=== PATIENT | male | born 1955 | race Caucasian/White ===

== ENCOUNTER 2017-03-26 08:54 | Emergency (ER) | payer MEDICARE ==
[~2017-03-26] VITALS: Ht 172.7 cm; Wt 113.4 kg
[~2017-03-26 08:54] MED LIST: ADVAIR 250-501 EACH INH; ASPIRIN325 MG PO; CENTRUM SILVER1 EAC3 PO; COMBIVENT RESPIM4 GM IH; GABAPENTIN100 MG PO; METAXALONE800 MG PO; METOPROLOL SUCC50 MG PO; OMEPRAZOLE40 MG PO; SIMVASTATIN40 MG PO; TAMSULOSIN HCL0.4 MG PO; TRAMADOL HCL100 MG PO; ZANTAC150 MG PO; ZOLOFT25 MG PO; ZOLPIDEM TARTRA10 MG PO
[2017-03-26] MEDS ORDERED: ALBUTEROL/IPRATROPIUM 3 ML NEB NEB ONE (09:30)
[2017-03-26] MEDS ORDERED: SODIUM CHLORIDE 0.9% 1000ML 1,000 ML IV SCH (09:45)
[2017-03-26] MEDS ORDERED: DILTIAZEM HCL 5 MG/ML 5 ML VIAL IV STA ×2 (09:45→10:48)
[2017-03-26 10:02] LABS: BASOPHILS % 0.3 % (0.0-1.0); EOSINOPHILS % 0.1 % (0.0-6.0); HEMATOCRIT 45.7 % (38.2-49.6); HEMOGLOBIN 15.2 g/dL (14.0-18.0); LYMPHOCYTES # (AUTO) 0.7 (1.0-3.2); LYMPHOCYTES % 9.6 % (18.0-39.1); MEAN CORPUSCULAR HGB CONC 33.3 g/dL (31-35); MONOCYTES # (AUTO) 0.6 (0.2-0.8); MONOCYTES % 8.8 % (4.4-11.3); NEUTROPHILS # (AUTO) 5.5 (2.1-6.9); NEUTROPHILS % 80.9 % (38.7-80.0); PLATELET COUNT 160 x10e3/uL (140-360); RED BLOOD COUNT 5.25 x10e6/uL (4.3-5.7); RED CELL DISTRIBUTION WIDTH 12.5 % (11.7-14.4)
--- NOTE | 2017-03-26 10:29 | Diagnostic Imaging Report ---
PROCEDURE: X-RAY CHEST, TWO VIEWS COMPARISON: NONE INDICATIONS: COUGH, FLU SYMPTOMS FINDINGS: LUNGS: No consolidations or edema. PLEURA: No effusions or pneumothorax. HEART \T\ MEDIASTINUM: The heart is within normal size-limits. BONES \T\ SOFT TISSUES: No acute findings. Wedge shaped mid thoracic spine vertebral body telephone claims representative of lytic chronic appearing compression abnormality. CONCLUSION: No acute thoracic abnormality. Osmel Munoz D.O. Dictated by: Osmel Munoz D.O. on 03/26/2017 at 10:37 Electronically approved by: Osmel Munoz D.O. on 03/26/2017 at 10:37
[2017-03-26 10:38] LABS: ANION GAP 15.5 mmol/L (8-16); BLOOD UREA NITROGEN 18 mg/dL (7-26); BUN/CREATININE RATIO 17 (6-25); CALCIUM 9.5 mg/dL (8.4-10.2); CARBON DIOXIDE 23 mmol/L (22-29); CHLORIDE 100 mmol/L (98-107); CREATININE, SERUM 1.09 mg/dL (0.72-1.25); EST GLOMERULAR FILTRATION RATE > 60 ML/MIN (60-); GLUCOSE 120 mg/dL (74-118); POTASSIUM 3.5 mmol/L (3.5-5.1); SODIUM 135 mmol/L (136-145)
[2017-03-26] MEDS ORDERED: OSELTAMIVIR PHOSPHATE 75 MG CAP PO ONE (11:00)
[2017-03-26] MEDS ORDERED: PANTOPRAZOLE SO40 MG PO (11:57)
[2017-03-26] MEDS ORDERED: FINASTERIDE5 MG PO (11:57)
[2017-03-26] MEDS ORDERED: SERTRALINE HCL50 MG PO (11:57)
[2017-03-26] MEDS ORDERED: DIAZEPAM5 MG PO (11:57)
[2017-03-26] MEDS ORDERED: OXYBUTYNIN CHLOR5 MG PO (11:57)
[2017-03-26] MEDS ORDERED: GABAPENTIN300 MG PO (11:57)
[2017-03-26] MEDS ORDERED: IBUPROFEN400 MG PO (11:57)
[2017-03-26] MEDS ORDERED: VITAMIN B-121000 MCG PO (11:57)
[2017-03-26 13:26] VITALS: BP 120/91
--- NOTE | 2017-03-26 14:14 | History and Physical ---
SHORTSTAY SUMMARY DATE OF DISCHARGE: 03/26/2017 Mr. Fredy Nogueira is a 61-year-old white man who presented to [facility] Emergency Room with a 3-to-4-day history of worsening, nonproductive cough, diffuse myalgias and shaking chills. Patient states that just 3 days ago his nephew was diagnosed with influenza. In the emergency room, the patient's nasal swab was positive for influenza A antigen. The patient's blood chemistries as well as his complete blood count were unremarkable. Chest x-ray done in the emergency room did not reveal any acute thoracic abnormality. The patient, however, was found to be in atrial fibrillation with heart rate of 125. The patient does have a history of chronic atrial fibrillation. The patient denies any chest pain at this time. He also denies any palpitations or lightheadedness. The patient is in no respiratory distress. REVIEW OF SYSTEMS GENERAL: Weight has been stable. He had shaking chills and fever. HEENT: No headache. No vision changes. CARDIOVASCULAR: He complains of dry cough for the last 3 to 4 days. Denies history of shortness of breath or chest pain. Also denies any palpitations or lightheadedness. GI: Benign. No diarrhea or constipation. : He does have BPH, and he has a history of left-sided kidney stones; but at this time, he denies any flank pain or hematuria. NEUROMUSCULAR: Has chronic back pain, but it is not worse than usual. PAST MEDICAL HISTORY 1. Chronic atrial fibrillation. 2. Obstructive sleep apnea. 3. Hyperlipidemia. 4. Hypertriglycerdemia. 5. Benign prostatic hypertrophy. 6. Left-sided kidney stones. 7. Obesity. 8. Tobacco abuse. 9. Chronic back pain secondary to lumbar spinal stenosis. 10. Bilateral knee degenerative joint disease. 11. Bilateral hip degenerative joint disease. 12. Erectile dysfunction. 13. Major depressive disorder. 14. Peripheral neuropathy. 15. Prediabetes. 16. GERD. SURGICAL HISTORY 1. Lumbar spine surgery in 1998. 2. Lumbar spine surgery a 2nd time in 2003. 3. History of multiple lumbar epidural steroid injections. FAMILY HISTORY: Father of cancer secondary to asbestosis. Patient states he has numerous family members with type-2 diabetes mellitus. Patient also has an aunt and uncle who of myocardial infarction. ALLERGIES: NO KNOWN DRUG ALLERGIES. SOCIAL HISTORY: This man is . He lives with his . He does smoke tobacco. Denies any alcohol use. 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 HOME MEDICATIONS 1. Aspirin 325 mg daily. 2. Xyzal 5 mg daily. 3. Diazepam 10 mg daily. 4. Finasteride 5 mg daily. 5. Advair 250 per 50 one puff b.i.d. 6. Gabapentin 300 mg t.i.d. 7. Ibuprofen 800 mg t.i.d. 8. Metaxalone 800 mg once daily. 9. Metoprolol succinate 50 mg daily. 10. Centrum Silver multivitamin once daily. 11. Oxybutynin 5 mg daily. 12. Pantoprazole 40 mg daily. 13. Sertraline 50 mg daily. 14. Simvastatin 40 mg nightly. 15. Tramadol Extended Release 100 mg once daily. PHYSICAL EXAMINATION GENERAL: He is awake, alert and fully oriented, in no acute distress, very pleasant. He is in no respiratory distress. VITAL SIGNS: Height is 5 feet 8 inches, weight 250 pounds. Calculated body mass index is 38. Blood pressure 111/65. Heart rate is currently 104 (patient was given Cardizem 10 mg intravenously 2 doses in the emergency room). Temperature is 99.5. Respiratory rate is 18. Oxygen saturation is 98% on room air. INTEGUMENT: Skin is warm and dry. No pallor, jaundice or diaphoresis. HEENT: Anicteric sclerae with moist mucous membranes. NECK: Supple. No evidence of jugular venous distention. CARDIOVASCULAR: Distant heart sounds. Tachycardic heart rate. Regular rhythm. LUNGS: The patient has coarse breath sounds bilaterally. ABDOMEN: Obese. Benign. EXTREMITIES: No edema or deformity. ADMISSION DIAGNOSES 1. Influenza A with respiratory manifestation (confirmed). 2. Chronic atrial fibrillation. 3. Obesity. Calculated body mass index 38. 4. Obstructive sleep apnea. 5. Tobacco use. 6. Chronic bronchitis. DISCHARGE DIAGNOSES 1. Chronic atrial fibrillation. 2. Influenza A with respiratory manifestation (confirmed). 3. Obstructive sleep apnea. 4. Obesity (calculated body mass index 38). 5. Tobacco abuse. 6. Chronic bronchitis. PLAN 1. The patient will continue his home medications. 2. Will ask the patient to stop aspirin therapy since he will be sent home on Eliquis. 3. Will ask the patient to stop NSAIDs and ibuprofen since he will be starting anticoagulation, namely Eliquis. 4. Will increase metoprolol succinate from 50 mg daily to twice a day for better heart rate control. 5. Will prescribe Tamiflu 75 mg p.o. b.i.d. for 5 days for the patient's influenza. 6. Will start Eliquis 5 mg twice a day for anticoagulation in regards to the patient's nonvalvular atrial fibrillation. 7. Highly recommend tobacco cessation. 8. Patient will follow up with his primary care physician, namely myself Dr. Chris Medina, within the next week. 9. Patient was instructed to follow up with the nearest emergency room if he experiences any further worsening shortness of breath or palpitations. 10. I spent 1 hour in the care of this patient. CHRIS MEDINA MD Job#: [id number] TRU CURTIS
== END 2017-03-26 14:00 | disposition home or self-care (01) ==
LOC: ER 08:54
DX: R06.00 Dyspnea, unspecified (principal); J11.1 Influenza due to unidentified influenza virus with other respiratory manifestations; I48.1 Persistent atrial fibrillation
CPT/HCPCS: 36415; 71020; 80048; 83880; 84484; 85025; 87400; 93005; 94640; 99284; J7030

== ENCOUNTER 2017-05-30 06:53 | Inpatient (IN) | payer MEDICARE ==
[~2017-05-30] VITALS: Ht 172.7 cm; Wt 108.0 kg
[~2017-05-30 06:53] MED LIST changes: +DIAZEPAM5 MG PO; +FINASTERIDE5 MG PO; +GABAPENTIN300 MG PO; +IBUPROFEN400 MG PO; +OXYBUTYNIN CHLOR5 MG PO; +PANTOPRAZOLE SO40 MG PO; +SERTRALINE HCL50 MG PO; +VITAMIN B-121000 MCG PO
--- OUTSIDE RECORDS SUMMARY | 2017-05-30 06:55 | XMS REPORT ---
Author Author [facility] Address Unknown Phone Unavailable Care Team Providers [employer] Name Role Phone MARÍA ELENA CHAPIN Unavailable Unavailable Problems This patient has no known problems. Allergies, Adverse Reactions, Alerts This patient has no known allergies or adverse reactions. Medications This patient has no known medications. Results Test Description Test Time Test Comments Text Results Atomic Results Result Comments CHEST 2 VIEWS [place] [address] Patient Name: ARIELLE HEARD JR MR #: [id number] : 1955 Age/Sex: 61/M Req #: [id number] Adm Physician: Ordered by: MARÍA ELENA CHAPIN MD Report #: [id number] Location: ER Room/Bed: Procedure: [id number] DX/CHEST 2 VIEWS Exam Date: 03/26/17 Exam Time : 0950 REPORT STATUS: Signed PROCEDURE: X-RAY CHEST, TWO VIEWS COMPARISON: NONE INDICATIONS: COUGH, FLU SYMPTOMS FINDINGS: LUNGS: No consolidations or edema. PLEURA: No effusions or pneumothorax. HEART T MEDIASTINUM: The heart is within normal size- limits. BONES T SOFT TISSUES: No acute findings. Wedge shaped mid thoracic spine vertebral body business process representative of lytic chronic appearing compression abnormality. CONCLUSION: No acute thoracic abnormality. Isaias Vu D.O. Dictated by: Isaias Vu D.O. on 03/26/2017 at 10:37 Electronically approved by: Isaias Vu D.O. on 03/26/2017 at 10:37 Dictated By: ISAIAS VU DO [id number] Transcribed By: ADRI on 03/26/17 1037 COPY TO: MARÍA ELENA CHAPIN MD
[2017-05-30] MEDS ORDERED: SODIUM CHLORIDE 0.9% 1000ML 1,000 ML IV STA (07:09)
[2017-05-30] MEDS ORDERED: ONDANSETRON HCL INJ 2 MG/ML VIAL IV PRN (07:15)
[2017-05-30] MEDS ORDERED: CEFTRIAXONE SOD 1 GM VIAL IM ONE (07:15)
[2017-05-30 07:53] LABS: BASOPHILS % 0.3 % (0.0-1.0); EOSINOPHILS # (AUTO) 0.1 (0.0-0.4); EOSINOPHILS % 1.4 % (0.0-6.0); HEMATOCRIT 46.9 % (38.2-49.6); LYMPHOCYTES # (AUTO) 2.7 (1.0-3.2); LYMPHOCYTES % 28.9 % (18.0-39.1); MEAN CORPUSCULAR HEMOGLOBIN 28.6 pg (28-32); MEAN CORPUSCULAR VOLUME 89.3 fL (81-99); MONOCYTES # (AUTO) 0.7 (0.2-0.8); MONOCYTES % 7.3 % (4.4-11.3); NEUTROPHILS # (AUTO) 5.7 (2.1-6.9); NEUTROPHILS % 61.8 % (38.7-80.0); PLATELET COUNT 203 x10e3/uL (140-360); RED BLOOD COUNT 5.25 x10e6/uL (4.3-5.7); RED CELL DISTRIBUTION WIDTH 13.6 % (11.7-14.4)
[2017-05-30 07:58] LABS: INR 0.95; PROTHROMBIN TIME 11.9 seconds (11.9-14.5)
[2017-05-30 07:59] LABS: PARTIAL THROMBOPLASTIN TIME 28.7 seconds (23.8-35.5)
[2017-05-30] MEDS ORDERED: MORPHINE SULFATE 2 MG/ML SYR IV PRN (08:00)
[2017-05-30 08:05] LABS: ALANINE AMINOTRANSFERASE 24 IU/L (0-55); ALBUMIN 3.6 g/dL (3.5-5.0); ALBUMIN/GLOBULIN RATIO 0.9 (0.8-2.0); ALKALINE PHOSPHATASE 67 IU/L (40-150); ANION GAP 13.6 mmol/L (8-16); BLOOD UREA NITROGEN 20 mg/dL (7-26); BUN/CREATININE RATIO 24 (6-25); CALCIUM 9.4 mg/dL (8.4-10.2); CARBON DIOXIDE 27 mmol/L (22-29); CHLORIDE 104 mmol/L (98-107); CREATININE, SERUM 0.83 mg/dL (0.72-1.25); EST GLOMERULAR FILTRATION RATE > 60 ML/MIN (60-); GLUCOSE 94 mg/dL (74-118); POTASSIUM 3.6 mmol/L (3.5-5.1); SODIUM 141 mmol/L (136-145)
[2017-05-30] MEDS: SODIUM CHLORIDE 0.9% 1000ML 1,000 ML IV SCH ×3 (08:23→21:12)
[2017-05-30] MEDS: CEFTRIAXONE SOD 1 GM VIAL IV SCH (08:23)
[2017-05-30] MEDS ORDERED: MELATONIN3 MG PO (08:29)
[2017-05-30] MEDS ORDERED: SIMVASTATIN40 MG PO (08:29)
[2017-05-30] MEDS ORDERED: CEFUROXIME250 MG PO (08:29)
[2017-05-30] MEDS ORDERED: TAMSULOSIN HCL0.4 MG PO (08:29)
[2017-05-30] MEDS ORDERED: ELIQUIS PO (08:29)
--- NOTE | 2017-05-30 09:05 | History and Physical ---
CHIEF COMPLAINT: "I am urinating blood." HISTORY OF PRESENT ILLNESS: This is a 62-year-old white male who presents to [facility] emergency room with a 3-week history of gross hematuria. The patient is on apixaban because of chronic atrial fibrillation. Moreover, the patient has a history of left-sided kidney stones. The patient denies any flank pain. He denies any recent trauma or injury to his abdominal or posterior torso area. The patient also denies any urinary tract infection symptoms. In the emergency room, the patient was found to have a hemoglobin of 15 g/dL. The patient's white blood cell count was 9100 with 62% segmented neutrophils. The patient's BUN and creatinine is 20 and 0.83 respectively. The patient was admitted for further evaluation and treatment. REVIEW OF SYSTEMS GENERAL: Weight has been stable. No fever or chills. No fatigue. HEENT: No headaches. No visual changes. CARDIOVASCULAR/RESPIRATORY: No chest pain or shortness of breath. He has a chronic cough. The patient states he does smoke tobacco heavily. The patient does have atrial fibrillation and is on apixaban as previously stated. GI: No nausea, vomiting, diarrhea, or constipation. The patient denies any melena or hematochezia. : The patient complains of gross hematuria for the last 3 weeks. The patient also has a history of left-sided kidney stones. NEUROMUSCULAR: Denies any limb weakness or numbness. The patient does complains of chronic back pain, as well as chronic pain in his bilateral knees and hips. ALLERGIES: NO KNOWN DRUG ALLERGIES. MEDICATIONS 1. Eliquis 5 mg b.i.d. 2. Xyzal 5 mg daily. 3. Diazepam 10 mg a day. 4. Finasteride 5 mg daily. 5. Advair 250 per 50 mg 1 puff b.i.d. 6. Gabapentin 300 mg t.i.d. 7. Metaxalone 100 mg once a day. 8. Metoprolol succinate 50 mg b.i.d. 9. Centrum Silver multivitamins one daily. 10. Oxybutynin 5 mg daily. 11. Pantoprazole 40 mg daily. 12. Sertraline 50 mg a day. 13. Simvastatin 40 mg at bedtime. 14. Tramadol extended release 100 mg once daily. PAST MEDICAL HISTORY 1. Chronic atrial fibrillation. 2. Obstructive sleep apnea. 3. Hyperlipidemia. 4. Hypertension. 5. Benign prostatic hypertrophy. 6. Left-sided kidney stones. 7. Obesity. 8. Tobacco abuse. 9. Chronic back pain secondary to lumbar spinal stenosis. 10. Bilateral knee degenerative joint disease. 11. Bilateral hip degenerative joint disease. 12. Erectile dysfunction. 13. Major depressive disorder. 14. Peripheral neuropathy. 15. Prediabetes. 16. GERD. SURGICAL HISTORY 1. Lumbar spine surgery in 1998. 2. Lumbar spine surgery in 2003. 3. History of multiple lumbar epidural steroid injections. FAMILY HISTORY: Father of cancer secondary to asbestosis. The patient states he has family members with type 2 diabetes mellitus. The patient also states he has an aunt and an uncle who of myocardial infarctions. SOCIAL HISTORY: This man is and lives with his . He is a heavy tobacco smoker. Denies any alcohol use. 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 PHYSICAL EXAMINATION GENERAL: He is awake, alert and oriented in no distress. Very pleasant and cooperative with exam. His sister and [id number] are at the bedside. VITALS: Height is 5 feet 8 inches, weight 230 pounds, calculated body mass index is 35. Blood pressure is 108/80, pulse 88, respiratory rate 16, temperature 98.6, oxygen saturation 96% on room air. INTEGUMENT: Skin is warm and dry. No pallor of conjunctivae appreciated. HEENT: Anicteric sclerae with moist mucous membranes. NECK: Supple. CARDIOVASCULAR: Distant heart sounds. Regular rate and rhythm. LUNGS: No rales. No rhonchi or wheezing. ABDOMEN: Obese and benign. SPINE/TORSO: No costovertebral angle tenderness appreciated. EXTREMITIES: No edema or deformity. NEUROLOGIC: Intact. IMPRESSION 1. Gross hematuria. 2. Chronic atrial fibrillation. 3. Tobacco abuse. 4. History of left-sided kidney stones. PLAN 1. Will hold apixaban. 2. Consult urology. 3. Make the patient n.p.o. since he may undergo cystoscopy today. 4. Will continue beta samantha, namely metoprolol succinate for heart rate control. 5. Highly recommend tobacco cessation since this puts him at risk for bladder carcinoma. I spent 45 minutes in the care of this patient. Job#: [id number] VANITA CURTIS
[2017-05-30 10:58] VITALS: BP 111/70
[2017-05-30 10:59] VITALS: BP 111/70
[2017-05-30 11:58] VITALS: BP 110/79
[2017-05-30] MEDS ORDERED: BELLADONNA/OPIUM 60 MG SUPP PR ONE (13:37)
[2017-05-30] MEDS ORDERED: IOPAMIDOL 610MG/1ML 300 MG/ML VIAL IV ONE (13:37)
[2017-05-30] MEDS ORDERED: BELLADONNA/OPIUM 60 MG SUPP PR PRN (15:00)
[2017-05-30 17:06] VITALS: BP 104/55
[2017-05-30] MEDS ORDERED: LIDOCAINE HCL 2% LOCAL INJ 5 ML SDV VIAL INJ ONE (18:05)
[2017-05-30] MEDS ORDERED: SEVOFLURANE INHAL SOLN 250 ML PEN BTL ONE (18:05)
[2017-05-30] MEDS ORDERED: PROPOFOL IV EMULSION 10 MG/ML 20 ML VIAL ONE (18:05)
[2017-05-30] MEDS ORDERED: DEXAMETHASONE SOD PHOS INJ 4 MG/ML VIAL ONE (18:05)
[2017-05-30] MEDS ORDERED: ONDANSETRON HCL INJ 2 MG/ML VIAL ONE (18:05)
[2017-05-30] MEDS ORDERED: OXYBUTYNIN CHLORIDE 5 MG TAB PO PRN (18:15)
[2017-05-30] MEDS ORDERED: TRAMADOL HCL 50 MG TAB PO PRN (18:15)
[2017-05-30] MEDS ORDERED: SALMETEROL/FLUTICASONE 250/50 INH PRN (18:15)
[2017-05-30] MEDS ORDERED: FENTANYL CITRATE/PF 100MCG/2 ML INJ ONE (18:32)
[2017-05-30] MEDS ORDERED: MIDAZOLAM HCL 2 MG/2 ML VIAL ONE (18:32)
[2017-05-30 20:00] VITALS: BP 133/69
[2017-05-30] MEDS ORDERED: MELATONIN 3 MG TAB PO SCH (21:00)
[2017-05-30] MEDS: GABAPENTIN 300 MG CAP PO SCH (21:33)
[2017-05-30] MEDS: MELATONIN 5 MG TABLET PO SCH (21:33)
[2017-05-30] MEDS: SIMVASTATIN 40 MG TAB PO SCH (21:33)
[2017-05-30] MEDS: METAXALONE 800 MG TAB PO SCH (21:33)
[2017-05-30 21:42] VITALS: BP 133/69
[2017-05-31] VITALS (8 sets, daily range): BP systolic 111–143; BP diastolic 66–73
[2017-05-31] MEDS: SODIUM CHLORIDE 0.9% 1000ML 1,000 ML IV SCH ×3 (04:46→22:57)
[2017-05-31 06:26] LABS: BASOPHILS % 0.1 % (0.0-1.0); EOSINOPHILS % 0.3 % (0.0-6.0); HEMATOCRIT 41.3 % (38.2-49.6); HEMOGLOBIN 13.3 g/dL (14.0-18.0); LYMPHOCYTES # (AUTO) 1.7 (1.0-3.2); LYMPHOCYTES % 15.9 % (18.0-39.1); MEAN CORPUSCULAR HEMOGLOBIN 28.6 pg (28-32); MEAN CORPUSCULAR HGB CONC 32.2 g/dL (31-35); MEAN CORPUSCULAR VOLUME 88.8 fL (81-99); MONOCYTES # (AUTO) 0.8 (0.2-0.8); MONOCYTES % 7.3 % (4.4-11.3); NEUTROPHILS # (AUTO) 7.9 (2.1-6.9); NEUTROPHILS % 75.9 % (38.7-80.0); PLATELET COUNT 175 x10e3/uL (140-360); RED BLOOD COUNT 4.65 x10e6/uL (4.3-5.7); RED CELL DISTRIBUTION WIDTH 13.7 % (11.7-14.4)
[2017-05-31 06:51] LABS: ANION GAP 11.8 mmol/L (8-16); BLOOD UREA NITROGEN 10 mg/dL (7-26); BUN/CREATININE RATIO 15 (6-25); CALCIUM 8.3 mg/dL (8.4-10.2); CARBON DIOXIDE 26 mmol/L (22-29); CHLORIDE 106 mmol/L (98-107); CREATININE, SERUM 0.65 mg/dL (0.72-1.25); EST GLOMERULAR FILTRATION RATE > 60 ML/MIN (60-); GLUCOSE 101 mg/dL (74-118); POTASSIUM 3.8 mmol/L (3.5-5.1); SODIUM 140 mmol/L (136-145)
[2017-05-31] MEDS: CEFTRIAXONE SOD 1 GM VIAL IV SCH (08:55)
[2017-05-31] MEDS: DIAZEPAM 5 MG TAB PO SCH (08:56)
[2017-05-31] MEDS: METAXALONE 800 MG TAB PO SCH ×3 (08:56→21:33)
[2017-05-31] MEDS: FINASTERIDE 5 MG TAB PO SCH (08:56)
[2017-05-31] MEDS: GABAPENTIN 300 MG CAP PO SCH ×3 (08:56→21:33)
[2017-05-31] MEDS: SERTRALINE HCL 50 MG TAB PO SCH (08:56)
[2017-05-31] MEDS: PANTOPRAZOLE SOD 40 MG TABEC PO SCH (08:56)
[2017-05-31] MEDS: TAMSULOSIN HCL 0.4 MG CAP PO SCH (08:56)
[2017-05-31] MEDS: SIMVASTATIN 40 MG TAB PO SCH (21:33)
[2017-05-31] MEDS: MELATONIN 5 MG TABLET PO SCH (21:33)
[2017-06-01] VITALS (7 sets, daily range): BP systolic 109–146; BP diastolic 59–83
[2017-06-01 06:49] LABS: BASOPHILS % 0.1 % (0.0-1.0); EOSINOPHILS # (AUTO) 0.2 (0.0-0.4); EOSINOPHILS % 1.9 % (0.0-6.0); HEMATOCRIT 41.5 % (38.2-49.6); HEMOGLOBIN 13.1 g/dL (14.0-18.0); LYMPHOCYTES # (AUTO) 2.2 (1.0-3.2); LYMPHOCYTES % 25.6 % (18.0-39.1); MEAN CORPUSCULAR HEMOGLOBIN 28.5 pg (28-32); MEAN CORPUSCULAR HGB CONC 31.6 g/dL (31-35); MEAN CORPUSCULAR VOLUME 90.4 fL (81-99); MONOCYTES # (AUTO) 0.6 (0.2-0.8); MONOCYTES % 7.3 % (4.4-11.3); NEUTROPHILS # (AUTO) 5.6 (2.1-6.9); NEUTROPHILS % 64.9 % (38.7-80.0); PLATELET COUNT 158 x10e3/uL (140-360); RED BLOOD COUNT 4.59 x10e6/uL (4.3-5.7); RED CELL DISTRIBUTION WIDTH 13.7 % (11.7-14.4)
[2017-06-01 07:06] LABS: ANION GAP 10.6 mmol/L (8-16); BLOOD UREA NITROGEN 8 mg/dL (7-26); BUN/CREATININE RATIO 11 (6-25); CALCIUM 8.2 mg/dL (8.4-10.2); CARBON DIOXIDE 27 mmol/L (22-29); CHLORIDE 106 mmol/L (98-107); CREATININE, SERUM 0.71 mg/dL (0.72-1.25); EST GLOMERULAR FILTRATION RATE > 60 ML/MIN (60-); GLUCOSE 98 mg/dL (74-118); POTASSIUM 3.6 mmol/L (3.5-5.1); SODIUM 140 mmol/L (136-145)
[2017-06-01] MEDS: SODIUM CHLORIDE 0.9% 1000ML 1,000 ML IV SCH ×3 (07:06→22:49)
[2017-06-01] MEDS: DIAZEPAM 5 MG TAB PO SCH (09:38)
[2017-06-01] MEDS: GABAPENTIN 300 MG CAP PO SCH ×3 (09:38→22:36)
[2017-06-01] MEDS: TAMSULOSIN HCL 0.4 MG CAP PO SCH (09:38)
[2017-06-01] MEDS: PANTOPRAZOLE SOD 40 MG TABEC PO SCH (09:38)
[2017-06-01] MEDS: METAXALONE 800 MG TAB PO SCH ×3 (09:38→22:36)
[2017-06-01] MEDS: CEFTRIAXONE SOD 1 GM VIAL IV SCH (09:38)
[2017-06-01] MEDS: SERTRALINE HCL 50 MG TAB PO SCH (09:38)
[2017-06-01] MEDS: FINASTERIDE 5 MG TAB PO SCH (09:38)
--- NOTE | 2017-06-01 13:38 | Progress Note ---
DATE: June 01, 2017 INTERNAL MEDICINE PROGRESS NOTE SUBJECTIVE: Patient is doing well. No significant complaints. PHYSICAL EXAMINATION VITALS: Blood pressure 129/76. Temperature 98 degrees. Heart rate 58 per minute. Respiratory rate is 18 per minute. Oxygen saturation 97%. HEART: Regular rhythm. Normal S1 and S2 sounds. LUNGS: Clear bilaterally. ABDOMEN: Soft. EXTREMITIES: No evidence of cyanosis, edema or trauma. LABS: On the blood tests, we have BMP with sodium 140, potassium 3.6, chloride 106, CO2 27, BUN 8, creatinine 0.71, glucose 98. On the CBC, white blood count 8.59, hemoglobin 13.1, hematocrit 41.5, platelet count 150,000. PT 11.9, INR 0.95, PTT 28.7. AST 19, ALT 24, total bilirubin 0.4, alkaline phosphatase 67. IMPRESSION 1. Hematuria which has resolved. Continue bladder irrigation. Will monitor hemoglobin and hematocrit. So far, hemoglobin is stable. 2. Left kidney stone. Plan of treatment: Urology followup. 3. Chronic atrial fibrillation. Continue holding Eliquis because of hematuria. 4. Obesity. 5. Tachycardia. Plan of treatment: We are going to resume the metoprolol he was taking at home. Job#: [id number]
[2017-06-01] MEDS: MELATONIN 5 MG TABLET PO SCH (22:36)
[2017-06-01] MEDS: SIMVASTATIN 40 MG TAB PO SCH (22:36)
[2017-06-02] VITALS: BP 154/90
[2017-06-02 05:13] VITALS: BP 143/91
[2017-06-02 06:55] LABS: BILIRUBIN,URINE NEGATIVE (NEGATIVE); CLARITY,URINE CLEAR (CLEAR); COLOR,URINE YELLOW (YELLOW); KETONES,URINE NEGATIVE (NEGATIVE); LEUKOCYTE ESTERASE ,URINE TRACE (NEGATIVE); NITRITE,URINE NEGATIVE (NEGATIVE); PROTEIN,URINE DIPSTICK NEGATIVE (NEGATIVE); URINE UROBILINOGEN 0.2 mg/dL (0.2 - 1)
[2017-06-02 07:04] LABS: RBC,URINE >50 /HPF (0-5)
[2017-06-02 07:05] LABS: BASOPHILS % 0.2 % (0.0-1.0); EOSINOPHILS # (AUTO) 0.2 (0.0-0.4); EOSINOPHILS % 2.6 % (0.0-6.0); HEMATOCRIT 43.2 % (38.2-49.6); HEMOGLOBIN 13.8 g/dL (14.0-18.0); LYMPHOCYTES # (AUTO) 2.2 (1.0-3.2); LYMPHOCYTES % 26.3 % (18.0-39.1); MEAN CORPUSCULAR HEMOGLOBIN 28.4 pg (28-32); MEAN CORPUSCULAR HGB CONC 31.9 g/dL (31-35); MEAN CORPUSCULAR VOLUME 88.9 fL (81-99); MONOCYTES # (AUTO) 0.6 (0.2-0.8); MONOCYTES % 7.5 % (4.4-11.3); NEUTROPHILS # (AUTO) 5.3 (2.1-6.9); NEUTROPHILS % 62.9 % (38.7-80.0); PLATELET COUNT 165 x10e3/uL (140-360); RED BLOOD COUNT 4.86 x10e6/uL (4.3-5.7); RED CELL DISTRIBUTION WIDTH 13.5 % (11.7-14.4)
[2017-06-02 07:05] LABS: EPITHELIAL CELLS,URINE RARE /LPF
[2017-06-02] MEDS: SODIUM CHLORIDE 0.9% 1000ML 1,000 ML IV SCH (07:09)
[2017-06-02 07:36] LABS: ANION GAP 11.6 mmol/L (8-16); BLOOD UREA NITROGEN 5 mg/dL (7-26); BUN/CREATININE RATIO 7 (6-25); CALCIUM 8.7 mg/dL (8.4-10.2); CARBON DIOXIDE 27 mmol/L (22-29); CHLORIDE 105 mmol/L (98-107); CREATININE, SERUM 0.71 mg/dL (0.72-1.25); EST GLOMERULAR FILTRATION RATE > 60 ML/MIN (60-); GLUCOSE 102 mg/dL (74-118); POTASSIUM 3.6 mmol/L (3.5-5.1); SODIUM 140 mmol/L (136-145)
[2017-06-02 08:45] VITALS: BP 178/99
[2017-06-02] MEDS ORDERED: METOPROLOL SUCCINATE 50 MG TAB XL PO SCH (09:00)
--- NOTE | 2017-06-02 09:40 | Discharge Summary ---
ADMIT DIAGNOSES 1. Gross hematuria. 2. Chronic atrial fibrillation. 3. Tobacco abuse. 4. History of left-sided kidney stones. 5. Hypertensive heart disease. 6. Obesity. Calculated body mass index 36. DISCHARGE DIAGNOSES 1. Gross hematuria, resolving. 2. Status post cystoscopy. 3. Status post transurethral resection of prostate. 4. Chronic atrial fibrillation. 5. Tobacco abuse. 6. History of left-sided kidney stones. 7. Hypertensive heart disease. 8. Obesity. Calculated body mass index 36. HOSPITAL COURSE: This is a 62-year-old white man who was initially admitted to [facility] with the diagnosis of gross hematuria. This gentleman also has an underlying history of chronic atrial fibrillation, as well as tobacco abuse. The patient is currently on oral apixaban in the form of Eliquis for anticoagulation in regards to his atrial fibrillation. During this hospitalization, anticoagulation, namely apixaban in the form of Eliquis was held. The patient was seen by his urologist, namely Dr. Henry Wood, who performed successful cystoscopy and TURP. The patient tolerated the surgery well. The cystoscopy revealed nonhealing ulcerations, as well as stone debris with inflammation. The prostate was biopsied. The patient's hospitalization was unremarkable. The patient received intravenous fluids for 3 days during this hospitalization. The Boothe catheter was removed on day of discharge, and the patient was able to urinate. The patient was still experiencing hematuria on discharge, but it was becoming less pronounced as evidenced by serial urine samples. The patient's condition on discharge was stable. DISCHARGE MEDICATIONS 1. Tamsulosin 0.4 mg once daily. 2. Eliquis 5 mg p.o. b.i.d. (the patient can start this medication on Friday, June 04, 2017). 3. Xyzal 5 mg daily. 4. Diazepam 10 mg daily as needed for anxiety. 5. Finasteride 5 mg daily. 6. Advair 250 per 50 mg 1 puff b.i.d. 7. Gabapentin 300 mg daily. 8. Metaxalone 100 mg once daily. 9. Metoprolol succinate 50 mg b.i.d. 10. Centrum Silver multivitamins once daily. 11. Oxybutynin 5 mg daily. 12. Pantoprazole 40 mg daily. 13. Sertraline 50 mg daily. 14. Simvastatin 40 mg at bedtime. 15. Tramadol extended release 100 mg once daily. 16. Tylenol #3 one pill every 4 hours prn #30. 17. Levaquin 500 mg daily for 7 days. FOLLOWUP INSTRUCTIONS: The patient was instructed to follow up with urology in 3 weeks, and with his primary care physician, namely myself, Dr. Chris Medina, in 2 weeks. Tobacco cessation was highly recommended to the patient. The patient refused nicotine patches on discharge. CHRIS MEDINA MD Job#: [id number] RI cc: HENRY WOOD MD MTDD
[2017-06-02] MEDS: CEFTRIAXONE SOD 1 GM VIAL IV SCH (10:15)
[2017-06-02] MEDS: METAXALONE 800 MG TAB PO SCH ×2 (10:15→16:00)
[2017-06-02] MEDS: FINASTERIDE 5 MG TAB PO SCH (10:15)
[2017-06-02] MEDS: DIAZEPAM 5 MG TAB PO SCH (10:15)
[2017-06-02] MEDS: GABAPENTIN 300 MG CAP PO SCH ×2 (10:15→16:00)
[2017-06-02] MEDS: SERTRALINE HCL 50 MG TAB PO SCH (10:15)
[2017-06-02] MEDS: PANTOPRAZOLE SOD 40 MG TABEC PO SCH (10:15)
[2017-06-02] MEDS: TAMSULOSIN HCL 0.4 MG CAP PO SCH (10:15)
[2017-06-02] MEDS ORDERED: CLONIDINE HCL 0.1 MG TAB PO ONE (12:15)
[2017-06-02 16:00] VITALS: BP 161/95
[2017-06-02] MEDS ORDERED: FLOMAX0.4 MG PO (16:55)
[2017-06-02] MEDS ORDERED: LEVAQUIN500 MG PO (16:57)
[2017-06-02] MEDS ORDERED: TYLENOL WITH C1 EACH PO (16:57)
== END 2017-06-02 18:15 | disposition home or self-care (01) | DRG 714 ==
LOC: ER 06:53 → ERHOLD 08:15 → INTOOBSV 08:48 → OBSVTOIN 08:48 → IMCU 10:06 → OBSVTOIN 05-31 08:48 → MED/SURG 05-31 09:13
PROVIDERS: ADMIT Internal Medicine; ATTEND Internal Medicine
PROC: BT141ZZ Fluoroscopy of Kidneys, Ureters and Bladder using Low Osmolar Contrast (ICD-10-PCS; 2017-05-30)
PROC: 0VB08ZZ Excision of Prostate, Via Natural or Artificial Opening Endoscopic (ICD-10-PCS; principal; 2017-05-30 13:30)
DX: N40.1 Benign prostatic hyperplasia with lower urinary tract symptoms (principal); I11.0 Hypertensive heart disease with heart failure; I48.2 Chronic atrial fibrillation; E66.9 Obesity, unspecified; Z79.01 Long term (current) use of anticoagulants; F17.210 Nicotine dependence, cigarettes, uncomplicated; Z68.36 Body mass index [BMI] 36.0-36.9, adult; R35.0 Frequency of micturition; E78.5 Hyperlipidemia, unspecified; G47.33 Obstructive sleep apnea (adult) (pediatric); F32.9 Major depressive disorder, single episode, unspecified; N20.0 Calculus of kidney; Z87.442 Personal history of urinary calculi; R00.0 Tachycardia, unspecified
CPT/HCPCS: 36415; 74420; 80048; 80053; 81001; 85025; 85610; 85730; 86850; 86900; 87086; 88305; 93005; 99284; G0378; J0696; J1100; J2001; J2250; J2405; J7030

== ENCOUNTER 2018-08-20 12:33 | Emergency (ER) | payer MEDICARE ==
[~2018-08-20] VITALS: Ht 172.7 cm; Wt 108.0 kg
[~2018-08-20 12:33] MED LIST changes: +CEFUROXIME250 MG PO; +ELIQUIS PO; +FLOMAX0.4 MG PO; +LEVAQUIN500 MG PO; +MELATONIN3 MG PO; +TYLENOL WITH C1 EACH PO
--- OUTSIDE RECORDS SUMMARY | 2018-08-20 12:36 | XMS REPORT | Continuity of Care Document ---
Author Author [facility] Interface Address Unknown Phone Unavailable Problems Problem Status Onset Date Classification Date Reported Comments Source Dysuria Active Problem 06/02/2017 [facility] Hematuria Active Problem 06/02/2017 [facility] Medications Medication Details Route Status Patient Instructions Ordering Provider Order Date Source Aspirin 325 Mg Tablet, 325 Mg Oral Daily Active 06/02/2017 [facility] Cefuroxime Axetil (Cefuroxime) 250 Mg Tablet, 500 Mg Oral Every 12 Hours Active 06/02/2017 [facility] Ibuprofen 400 Mg Tablet, 800 Mg Oral Three Times A Day Active 06/02/2017 [facility] Simvastatin 40 Mg Tablet, 40 Mg Oral Daily Active 06/02/2017 [facility] Tamsulosin Hcl 0.4 Mg Cap.er.24h, 0.4 Mg Oral Daily Active 06/02/2017 [facility] Gabapentin 100 Mg Capsule, 100 Mg Oral Three Times A Day Active 03/26/2017 [facility] Ipratropium/Albuterol Sulfate (Combivent Respimat Inhal Branscomb) 4 Gm Aer.w.adap, 4 Gm Inhalation As Needed Active 03/26/2017 [facility] Omeprazole 40 Mg Capsule.dr, 40 Mg Oral Daily Active 03/26/2017 [facility] Ranitidine Hcl (Zantac) 150 Mg Tablet, Mg Oral Daily Active 03/26/2017 [facility] Sertraline Hcl (Zoloft) 25 Mg Tablet, 25 Mg Oral Daily Active 03/26/2017 [facility] Tamsulosin Hcl 0.4 Mg Cap.er.24h, Mg Oral Bedtime Active 03/26/2017 [facility] Zolpidem Tartrate 10 Mg Tablet, 10 Mg Oral Active 03/26/2017 [facility] Acetaminophen With Codeine (Tylenol With Codeine #3 Tablet) 1 Each Tablet Every 4 Hours as needed for Pain Active [facility] Cyanocobalamin (Vitamin B-12) 1,000 Mcg Tab Daily Active [facility] Diazepam 5 Mg Tablet Daily Active [facility] Eliquis 5 Three Times A Day Active [facility] Finasteride 5 Mg Tablet Daily Active [facility] Fluticasone/Salmeterol (Advair 250-50 Diskus) 1 Each Disk.w.dev As Needed Active [facility] Gabapentin 300 Mg Capsule Three Times A Day Active [facility] Levofloxacin (Levaquin) 500 Mg Tablet Daily Active [facility] Melatonin 3 Mg Tablet Bedtime Active [facility] Metaxalone 800 Mg Tablet Three Times A Day Active [facility] Metoprolol Succinate 50 Mg Tab.er.24h Daily Active [facility] Mu-Vits-Min Th/Lycopene/Lutein (Centrum Silver Tablet) 1 Each Tablet Daily Active [facility] Oxybutynin Chloride 5 Mg Tablet Twice A Day as needed for Bladder Spasms Active [facility] Pantoprazole Sodium (Protonix) 40 Mg Tablet.dr Daily Active [facility] Sertraline Hcl 50 Mg Tablet Daily Active [facility] Simvastatin 40 Mg Tablet Today At 9:00PM Active [facility] Tamsulosin Hcl (Flomax*) 0.4 Mg Cap 30MINAFTERSUPPER Active [facility] Tramadol Hcl 100 Mg Tab.er.24h Three Times A Day Active [facility] Allergies, Adverse Reactions, Alerts Substance Category Reaction Severity Reaction type Status Date Reported Comments Source Immunizations Immunization Date Given Site Status Last Updated Comments Source Results Order Name Results Value Reference Range Date Interpretation Comments Source Automated blood basophil count (count/volume) Automated blood basophil count (count/volume) 0.0 0.0 - 0.1 06/02/2017 [facility] Automated blood basophil count as percentage of total leukocytes Automated blood basophil count as percentage of total leukocytes 0.2 0.0 - 1.0 06/02/2017 [facility] Automated blood eosinophil count Automated blood eosinophil count 0.2 0.0 - 0.4 06/02/2017 [facility] Automated blood eosinophil count as percentage of total leukocytes Automated blood eosinophil count as percentage of total leukocytes 2.6 0.0 - 6.0 06/02/2017 [facility] Automated blood hematocrit (volume fraction) Automated blood hematocrit (volume fraction) 43.2 38.2 - 49.6 06/02/2017 [facility] Automated blood lymphocyte count as percentage ot total leukocytes Automated blood lymphocyte count as percentage ot total leukocytes 26.3 18.0 - 39.1 06/02/2017 [facility] Automated blood monocyte count as percentage of total leukocytes Automated blood monocyte count as percentage of total leukocytes 7.5 4.4 - 11.3 06/02/2017 [facility] Automated blood neutrophil count Automated blood neutrophil count 5.3 2.1 - 6.9 06/02/2017 [facility] Automated blood platelet count (count/volume) Automated blood platelet count (count/volume) 165 140 - 360 06/02/2017 [facility] Automated blood segmented neutrophil count as percentage of total leukocytes Automated blood segmented neutrophil count as percentage of total leukocytes 62.9 38.7 - 80.0 06/02/2017 [facility] Automated erythrocyte mean corpuscular hemoglobin (mass per erythrocyte) Automated erythrocyte mean corpuscular hemoglobin (mass per erythrocyte) 28.4 28 - 32 06/02/2017 [facility] Automated erythrocyte mean corpuscular hemoglobin concentration measurement (mass/volume) Automated erythrocyte mean corpuscular hemoglobin concentration measurement (mass/volume) 31.9 31 - 35 06/02/2017 [facility] Automated erythrocyte mean corpuscular volume Automated erythrocyte mean corpuscular volume 88.9 81 - 99 06/02/2017 [facility] Blood erythrocytes automated count (number/volume) Blood erythrocytes automated count (number/volume) 4.86 4.3 - 5.7 06/02/2017 [facility] Blood hemoglobin measurement (moles/volume) Blood hemoglobin measurement (moles/volume) 13.8 14.0 - 18.0 06/02/2017 [facility] Blood leukocytes automated count (number/volume) Blood leukocytes automated count (number/volume) 8.40 4.8 - 10.8 06/02/2017 [facility] Blood lymphocytes count (number/volume) Blood lymphocytes count (number/volume) 2.2 1.0 - 3.2 06/02/2017 [facility] Blood monocytes automated count (number/volume) Blood monocytes automated count (number/volume) 0.6 0.2 - 0.8 06/02/2017 [facility] Estimated glomerular filtration rate (GFR) determination Estimated glomerular filtration rate (GFR) determination null 60 06/02/2017 [facility] Glucose measurement Glucose measurement 102 74 - 118 06/02/2017 [facility] Serum or plasma anion gap Serum or plasma anion gap 11.6 8 - 16 06/02/2017 [facility] Serum or plasma calcium measurement (mass/volume) Serum or plasma calcium measurement (mass/volume) 8.7 8.4 - 10.2 06/02/2017 [facility] Serum or plasma carbon dioxide, total measurement (moles/volume) Serum or plasma carbon dioxide, total measurement (moles/volume) 27 22 - 29 06/02/2017 [facility] Serum or plasma chloride measurement (moles/volume) Serum or plasma chloride measurement (moles/volume) 105 98 - 107 06/02/2017 [facility] Serum or plasma creatinine measurement (mass/volume) Serum or plasma creatinine measurement (mass/volume) 0.71 0.72 - 1.25 06/02/2017 [facility] Serum or plasma potassium measurement (moles/volume) Serum or plasma potassium measurement (moles/volume) 3.6 3.5 - 5.1 06/02/2017 [facility] Serum or plasma sodium measurement (moles/volume) Serum or plasma sodium measurement (moles/volume) 140 136 - 145 06/02/2017 [facility] Serum or plasma urea nitrogen measurement (mass/volume) Serum or plasma urea nitrogen measurement (mass/volume) 5 7 - 26 06/02/2017 [facility] Serum or plasma urea nitrogen/creatinine mass ratio Serum or plasma urea nitrogen/creatinine mass ratio 7 6 - 25 06/02/2017 [facility] Red Cell Distribution Width 13.5 11.7 - 14.4 06/02/2017 [facility] IM GRANULOCYTES % 0.5 0.0 - 1.0 06/02/2017 [facility] Absolute Immature Granulocyte (auto 0.04 0 - 0.1 06/02/2017 [facility] Automated urine sediment leukocyte count by microscopy (number/high power field) Automated urine sediment leukocyte count by microscopy (number/high power field) NONE 0 - 5 06/02/2017 [facility] Bacteria detection in urine sediment by light microscopy Bacteria detection in urine sediment by light microscopy NONE NONE 06/02/2017 [facility] Epithelial cells detection in urine sediment by light microscopy Epithelial cells detection in urine sediment by light microscopy RARE NONE 06/02/2017 [facility] Erythrocytes detection in urine sediment by light microscopy Erythrocytes detection in urine sediment by light microscopy null 0 - 5 06/02/2017 [facility] Specific gravity of Urine by Test strip Specific gravity of Urine by Test strip 1.005 1.010 - 1.025 06/02/2017 [facility] Urine clarity Urine clarity CLEAR CLEAR 06/02/2017 [facility] Urine color determination Urine color determination YELLOW YELLOW 06/02/2017 [facility] Urine erythrocytes detection Urine erythrocytes detection 4+ NEGATIVE 06/02/2017 [facility] Urine glucose detection Urine glucose detection NEGATIVE NEGATIVE 06/02/2017 [facility] Urine ketones detection by automated test strip Urine ketones detection by automated test strip NEGATIVE NEGATIVE 06/02/2017 [facility] Urine leukocyte esterase detection by dipstick Urine leukocyte esterase detection by dipstick TRACE NEGATIVE 06/02/2017 [facility] Urine nitrite detection Urine nitrite detection NEGATIVE NEGATIVE 06/02/2017 [facility] Urine pH measurement by automated test strip Urine pH measurement by automated test strip 7 5 - 7 06/02/2017 [facility] Urine protein measurement by test strip (mass/volume) Urine protein measurement by test strip (mass/volume) NEGATIVE NEGATIVE 06/02/2017 [facility] Urine total bilirubin measurement (mass/volume) Urine total bilirubin measurement (mass/volume) NEGATIVE NEGATIVE 06/02/2017 [facility] Urine urobilinogen measurement by test strip (mass/volume) Urine urobilinogen measurement by test strip (mass/volume) 0.2 0.2 - 1 06/02/2017 [facility] Activated partial thromboplastin time (aPTT) in platelet poor plasma bycoagulation assay Activated partial thromboplastin time (aPTT) in platelet poor plasma bycoagulation assay 28.7 23.8 - 35.5 05/30/2017 [facility] INR in Platelet poor plasma by Coagulation assay INR in Platelet poor plasma by Coagulation assay 0.95 05/30/2017 [facility] Plasma globulin measurement (mass/volume) Plasma globulin measurement (mass/volume) 3.9 2.3 - 3.5 05/30/2017 [facility] Prothrombin time (PT) in platelet poor plasma by coagulation assay Prothrombin time (PT) in platelet poor plasma by coagulation assay 11.9 11.9 - 14.5 05/30/2017 [facility] Serum or plasma alanine aminotransferase measurement (enzymatic activity/volume) Serum or plasma alanine aminotransferase measurement (enzymatic activity/volume) 24 0 - 55 05/30/2017 [facility] Serum or plasma albumin measurement (mass/volume) Serum or plasma albumin measurement (mass/volume) 3.6 3.5 - 5.0 05/30/2017 [facility] Serum or plasma albumin/globulin mass ratio Serum or plasma albumin/globulin mass ratio 0.9 0.8 - 2.0 05/30/2017 [facility] Serum or plasma alkaline phosphatase measurement (enzymatic activity/volume) Serum or plasma alkaline phosphatase measurement (enzymatic activity/volume) 67 40 - 150 05/30/2017 [facility] Serum or plasma protein measurement (mass/volume) Serum or plasma protein measurement (mass/volume) 7.5 6.5 - 8.1 05/30/2017 [facility] Serum or plasma total bilirubin measurement (mass/volume) Serum or plasma total bilirubin measurement (mass/volume) 0.4 0.2 - 1.2 05/30/2017 [facility] Aspartate Amino Transf (AST/SGOT) 19 5 - 34 05/30/2017 [facility] Troponin I measurement by highly sensitive enzyme immunoassay Troponin I measurement by highly sensitive enzyme immunoassay 0.019 0 - 0.300 03/26/2017 [facility] Influenza virus A and B antigen identification by immunofluorescence Influenza virus A and B antigen identification by immunofluorescence POSITIVE FLU A NEGATIVE 03/26/2017 [facility] B-Type Natriuretic Peptide 60.5 0 - 100 03/26/2017 [facility] Vital Signs Vital Sign Value Date Comments Source Encounters Location Location Details Encounter Type Encounter Number Reason For Visit Attending Provider ADM Date DC Date Status Source Departed Emergency Room [id number] MARÍA ELENA CHAPIN MD 03/26/2017 03/26/2017 [facility] Discharged Inpatient [id number] ELIZABETH MEIDNA MD 05/31/2017 06/02/2017 [facility] Procedures Procedure Code Date Perfomer Comments Source Cystoscopy with retrograde pyelography [id number] 05/30/2017 [facility] X-ray of chest, two views [id number] 03/26/2017 [facility]
--- OUTSIDE RECORDS SUMMARY | 2018-08-20 12:36 | XMS REPORT ---
Author Author [facility] Address Unknown Phone Unavailable Care Team Providers Care Floral Arranger Name Role Phone Rosa CHAPIN Unavailable Unavailable Problems This patient has no known problems. Allergies, Adverse Reactions, Alerts This patient has no known allergies or adverse reactions. Medications This patient has no known medications. Results Test Description Test Time Test Comments Text Results Atomic Results Result Comments CHEST 2 VIEWS [place] [address] Patient Name: ARIELLE HEARD JR MR #: [id number] : 1955 Age/Sex: 61/M Req #: [id number] Adm Physician: Ordered by: MARÍA ELENA CHAPIN MD Report #: [id number] Location: ER Room/Bed: Procedure: [id number] DX/CHEST 2 VIEWS Exam Date: 03/26/17 Exam Time: 0950 REPORT STATUS: Signed PROCEDURE: X-RAY CHEST, TWO VIEWS COMPARISON: NONE INDICATIONS: COUGH, FLU SYMPTOMS FINDINGS: LUNGS: No consolidations or edema. PLEURA: No effusions or pneumothorax. HEART T MEDIASTINUM: The heart is within normal size-limits. BONES T SOFT TISSUES: No acute findings. Wedge shaped mid thoracic spine vertebral body jewelry sales representative of lytic chronic appearing compression abnormality. CONCLUSION: No acute thoracic abnormality. Isaias Vu D.O. Dictated by: Isaias Vu D.O. on 03/26/2017 at 10:37 Electronically approved by: Isaias Vu D.O. on 03/26/2017 at 10:37 Dictated By: ISAIAS VU DO [id number] Transcribed By: ADRI on 03/26/17 1037 COPY TO: MARÍA ELENA CHAPIN MD
--- NOTE | 2018-08-20 14:40 | Diagnostic Imaging Report ---
EXAM: ABDOMEN-1VIEW (KUB) DATE: 08/20/2018 1:36 PM INDICATION: ^KIDNEY INFECTION ^[id number] ^[id number] COMPARISON: None FINDINGS: 2 supine views of the abdomen show a normal distribution of air in the small and large bowel. No abnormal calcification is identified projected on the areas of the kidneys, expected paths of the ureters or urinary bladder small calcifications might be obscured by overlying bowel and bone. Surgical fusion hardware is seen extending from L4 through S1 with postoperative changes in the spine. There are degenerative changes in the lower thoracic spine. Lung bases appear clear. IMPRESSION: 1. Normal bowel pattern with no evidence for dilatation or obstruction. 2. No calcifications are seen projected on the expected locations of the urinary tract. Signed by: Dr. Gabriel Babb M.D. on 08/20/2018 2:37 PM
[2018-08-20 16:31] LABS: BILIRUBIN,URINE NEGATIVE (NEGATIVE); CLARITY,URINE SL CLOUDY (CLEAR); COLOR,URINE YELLOW (YELLOW); KETONES,URINE NEGATIVE (NEGATIVE); LEUKOCYTE ESTERASE ,URINE NEGATIVE (NEGATIVE); NITRITE,URINE NEGATIVE (NEGATIVE); PROTEIN,URINE DIPSTICK NEGATIVE (NEGATIVE); URINE UROBILINOGEN 0.2 mg/dL (0.2 - 1)
[2018-08-20 16:41] LABS: AMORPHOUS SEDIMENT,URINE MANY (FEW); BACTERIA,URINE MANY /HPF; CALCIUM OXALATE CRYSTALS,UR RARE (FEW); EPITHELIAL CELLS,URINE MODERATE /LPF; WBC,URINE (MAN) 0-5 /HPF (0-5)
== END 2018-08-20 17:54 | disposition home or self-care (01) ==
LOC: ER 12:33
DX: R35.0 Frequency of micturition (principal); R00.1 Bradycardia, unspecified; I10 Essential (primary) hypertension; E78.5 Hyperlipidemia, unspecified; K21.9 Gastro-esophageal reflux disease without esophagitis; M54.9 Dorsalgia, unspecified; G89.29 Other chronic pain
CPT/HCPCS: 74018; 81001; 87086; 93005; 99283

== ENCOUNTER → 2022-05-10 | Outpatient (CLI) | payer MEDICARE ==
[~2022-05-10] MED LIST changes: +IOPAMIDOL 370 MG/ML 100 ML INFUS..BTL INJ ONE
[2022-05-10 13:49] LABS: CREATININE, SERUM 0.91 mg/dL (0.72-1.25)
== END ==
LOC: CT 12:56
PROVIDERS: ATTEND Internal Medicine
DX: J41.0 Simple chronic bronchitis (principal); R91.8 Other nonspecific abnormal finding of lung field; J62.8 Pneumoconiosis due to other dust containing silica
CPT/HCPCS: 36415; 71260; 82565; 84520; Q9967